=== PATIENT | female | born 1970 | race Caucasian/White ===

== ENCOUNTER 2024-07-06 20:48 | Emergency (ER) | payer SELFPAY ==
[2024-07-06 20:49] VITALS: BP 253/147; PULSE 118; RESP 16; TEMP 36.3; O2SAT 98; BMI 27.3
--- NOTE | 2024-07-06 21:24 | EKG12_ITS ---
Test Reason : DYSRHYTHMIA Blood Pressure : / mmHG Vent. Rate : 106 BPM Atrial Rate : 106 BPM P-R Int : 152 ms QRS Dur : 078 ms QT Int : 368 ms P-R-T Axes : 052 -11 056 degrees QTc Int : 488 ms Sinus tachycardia Possible Left atrial enlargement Nonspecific ST abnormality Abnormal ECG Confirmed by STACY YOUNG, ANGEL ([id number]), school photograph editor AMITA DICK ([id number]) on 07/08/2024 8:08:29 AM Referred By: Confirmed By:ANGEL KUMAR MD
[2024-07-06 21:30] LABS: Absolute Neutrophil Count 3.3 X10^3/uL (2.0-7.7); Basophil# 0.01 X10^3/uL; Basophil% 0.2 % (0-1); Eosinophils% 1.7 % (0-5); Hematocrit 41.7 % (37-47); Hemoglobin 14.4 g/dL (12.0-15.0); Lymphocyte % 35.7 % (19-41); Mean Corp Hgb Conc 34.5 g/dL (32-36); Mean Corpuscular Hgb 29.5 pg (27.0-32.0); Mean Corpuscular Volume 85.5 fL (81-99); Mean Platelet Vol. 10.5 fl (6.2-12.0); Monocyte# 0.34 X10^3/uL; Monocyte% 5.8 % (0-10); NRBC Flagged by Analyzer 0 % (0-5); Neutrophil # 3.31 X10^3/uL (2.7-7.7); Neutrophil % 56.3 % (47-70); Platelet Count 234 K/mm3 (150-450); RBC Distribution Width CV 12.9 % (11.6-14.6); RBC Distribution Width SD 39.9 fl (35.1-43.9); Red Blood Count 4.88 M/mm3 (4.2-5.4); White Blood Count 5.9 K/mm3 (4.4-11.0)
[2024-07-06] MEDS: Labetalol (Prefilled) 20 MG/4 ML 10 MG IV (21:42)
[2024-07-06 21:44] LABS: Anion Gap 7 (5-15); BUN 24 mg/dL (7-18); BUN/Creat Ratio 25.9 RATIO (10-20); Calcium,Total 9.7 mg/dL (8.5-10.1); Chloride 100 mmol/L (98-107); Creatinine, Serum 0.93 mg/dL (0.55-1.02); EST Glomerular Filtration Rate 67 mL/min (>60); Est Glom Filt Rate - Afr Amer 81 mL/min (>60); Estimated Creatinine Clearance 69.93 ml/min; Glucose 379 mg/dL (74-106); Potassium 4.1 mmol/L (3.5-5.1); Sodium Level 135 mmol/L (136-145)
[2024-07-06 21:49] VITALS: BP 207/82; PULSE 92; RESP 13; O2SAT 97
[2024-07-06 21:55] LABS: Bacteria 0 SEEN /hpf (None Seen); Mucous, Urine 0 SEEN /hpf (<or=2+)
[2024-07-06 21:56] LABS: Color, Urine Yellow (Yellow); Glucose, Dipstick 1000 mg/dl (Normal); Ketone-Dipstick Negative (Negative); Leukocyte Esterase-Dipstick Negative /ul (Negative); Nitrite-Dipstick Negative (Negative); Occult Blood-Urine Negative /ul (Negative); Protein-Dipstick Negative (Negative); Urine Bilirubin Dipstick Negative (Negative); Urine Clarity Clear (Clear); Urine Urobilinogen Normal (Normal)
[2024-07-06 22:00] VITALS: BP 178/93; PULSE 92; RESP 15; O2SAT 98
[2024-07-06 22:08] LABS: Red Blood Cells-Urine 0-5 SEEN /hpf (0-5); Squamous Epithelial Cells - UA 0-5 SEEN /hpf (5-10); White Blood Cells 0-5 SEEN /hpf (0-5)
--- NOTE | 2024-07-06 22:09 | EDS_ITS ---
HPI History of Present Illness Chief Complaint: Hypertension Detail of Chief Complaint: Blood pressure greater than 200 Informant: patient Onset/Context/Timing Onset: - (Unknown) Context: - (Unknown) Timing: - (Presumed continuous) Quality: Blood pressure reading yesterday of 169 systolic. Today blood pressure bren Location: Cardiovascular Current Severity: Moderate Maximum Severity: Moderate Worsened by: Nothing Relieved by: Nothing Associated Symptoms Associated Symptoms: Slight headache yesterday Narrative Narrative: Patient is a 54-year-old woman has not seen a physician in over 5 years. She is present on no medicines. She is on herbal supplements. She states that beet juice. She changed her diet to be more healthy. She is scheduled to see a doctor in September. She is uncertain of the name of that physician. She denies allergies. Prior similar symptoms: No Recent Illness/Hospitalization: No PFSH PFS Medical History (Updated 07/06/24 @ 22:[address] Moe Villarreal MD) Hypertension Medical History no medical history no medical history Home Medications ?Medication ?Instructions ?Recorded ?Last Taken ?Type lisinopril 10 1 tab PO DAILY #30 tabs 07/06/24 Unknown Rx mg-hydrochlorothiazide 12.5 mg tablet metformin 500 mg tablet,extended 500 mg PO DAILY #30 tabs 07/06/24 Unknown Rx release 24 hr Allergy/AdvReac Type Severity Reaction Status Date / Time No Known Allergies Allergy Verified 07/06/24 20:52 Surgical History H/O tubal ligation Social History (Updated 07/06/24 @ 22:[address] Moe Villarreal MD) household members: spouse Smoking Status: Never smoker ROS ROS ED Constitutional Constitutional ED: Denies chills, fever(s), subjective or sweats Eyes Eyes: Denies blurry vision, change in vision or diplopia ENT ENT ED: Reports other Details: Denies trouble with speech or swallowing. ; Denies ear pain, rhinorrhea or sore throat Cardiovascular Cardiovascular: Denies chest pain, orthopnea, palpitations or paroxysmal nocturnal dyspnea Respiratory/Chest Respiratory/Chest: Denies cough, dyspnea, dyspnea on exertion, orthopnea or paroxysmal nocturnal dyspnea Gastrointestinal Gastrointestinal: Denies abdominal pain, nausea or vomiting Musculoskeletal Musculoskeletal: Denies arthralgias, back pain or myalgias Neurologic Neurologic: Reports headache(s) and other Details: No problems with balance or coordination. Denies anesthesia or motor weakness. ; Denies paresthesias or weakness Hematologic/Lymphatic Hematologic/Lymphatic: Reports systems reviewed and no addt'l complaints, except as documented EXAM Physical Exam Const Vital Signs: 07/06/24 20:49 07/06/24 21:08 07/06/24 21:49 Temperature 97.4 F L Temperature Source Temporal Pulse Rate 118 H 92 Respiratory Rate 16 13 Respiratory Effort Normal Non-Labored Respiratory Pattern Normal Blood Pressure 253/147 H 207/82 H Blood Pressure Mean 182 123 Pulse Ox 98 97 Oxygen Delivery Method Room Air Room Air 07/06/24 22:00 Temperature Temperature Source Pulse Rate 92 Respiratory Rate 15 Respiratory Effort Respiratory Pattern Blood Pressure 178/93 H Blood Pressure Mean 121 Pulse Ox 98 Oxygen Delivery Method Room Air Positive well nourished and well developed Constitutional Narrative: Blood pressure readings noted. General Appearance ED: well developed and NAD; Negative for pallor HEENT Reports moist mucous membranes HEENT Narrative: Head is atraumatic normocephalic. Ears normal. TMs normal. Posterior pharynx out erythema exudate. Uvula midline. No deviation tongue with protrusion. Eyes PERRL and EOMs intact bilaterally Eyes Narrative: There is no nystagmus. Funduscopic exam reveals no papilledema. There may be AV nicking. There is no copper wiring or exudate noted. Neck no lymphadenopathy, supple and no JVD Neck Narrative: There are no carotid bruits. Trachea is midline. Resp normal respiratory effort and clear to auscultation bilaterally Cardio regular rhythm, S1 normal heart sound, S2 normal heart sound and no murmurs Rate: tachycardic GI normal to inspection, nondistended, normoactive bowel sounds, non-tender and non-distended Extremity normal to inspection General Extremety ED: Negative for edema or tenderness General Extremity: Negative for edema Neuro oriented x3, CN's II-XII intact bilaterally and no sensory deficits noted Neuro Narrative: There is no dysmetria. Deep tendon reflexes are 1+ at the bicep, brachialis, tricep, patella and ankle. There is no clonus. There is no Babinski sign noted. Sensorium / Orientation: alert Motor Exam: strength 5/5 throughout Psych mental status grossly normal Skin no rashes or lesions noted, no wounds and skin turgor normal General Skin Exam: elasticity normal; Negative for jaundice or pallor MDM MDM MDM Narrative Medical decision making narrative: Patient with markedly elevated blood pressure. She has a nonfocal neurologic exam and has no neurologic symptoms therefore CT of the head was not obtained. Will obtain blood work to assess for endorgan dysfunction. This included EKG looking for evidence of LVH. Basic metabolic panel to assess BUN and creatinine, CBC to assess H&H. Lab Data Attestation: I reviewed the patient's lab results. Lab results narrative: CBC is normal. Basic metabolic panel is remarkable for elevated blood sugar, 379. The CO2 and anion gap are normal. BUN is elevated 24. Creatinine is normal. Urine is positive for glucose otherwise negative. There is no evidence of proteinuria or hematuria. Labs: Laboratory Results - last 24 hr 07/06/24 07/06/24 21:06 21:42 WBC 5.9 RBC 4.88 Hgb 14.4 Hct 41.7 MCV 85.5 MCH 29.5 MCHC 34.5 RDW Std Deviation 39.9 RDW Coeff of Debbie 12.9 Plt Count 234 MPV 10.5 Immature Gran % (Auto) 0.300 Neut % (Auto) 56.3 Lymph % (Auto) 35.7 [place] % (Auto) 5.8 Eos % (Auto) 1.7 Baso % (Auto) 0.2 Absolute Neuts (auto) 3.3 Absolute Lymphs (auto) 2.10 Nucleated RBC % 0 Sodium 135 L Potassium 4.1 Chloride 100 Carbon Dioxide 28.0 Anion Gap 7 BUN 24 H Creatinine 0.93 Estim Creat Clear Calc 69.93 Est GFR (MDRD) Af Amer 81 Est GFR (MDRD) Non-Af 67 BUN/Creatinine Ratio 25.9 H Glucose 379 H Calcium 9.7 Urine Color Yellow Urine Clarity Clear Urine pH 8.0 Ur Specific [place] 1.010 Urine Protein Negative Urine Glucose (UA) 1000 H Urine Ketones Negative Urine Occult Blood Negative Urine Nitrite Negative Urine Bilirubin Negative Urine Urobilinogen Normal Ur Leukocyte Esterase Negative Urine RBC 0-5 SEEN Urine WBC 0-5 SEEN Ur Squamous Epith Cells 0-5 SEEN Urine Bacteria 0 SEEN Urine Mucus 0 SEEN EKG Initial EKG: Attestation: I personally reviewed and interpreted this EKG as follows: Interpretation: Sinus Rhythm (Rate is 94. There is possible left atrial enlargement. There is no evidence of LVH. There are some nonspecific changes noted. [place] interval 252 ms. QS duration 70 ms. QT durations under 68 ms. [place] is normal.) Treatment and Re-Evaluation :: Since patient's blood pressure is elevated and she is tachycardic 10 mg of labetalol was ordered IV push. Patient was reassessed at 2215. Blood pressure is 178/82. Heart rate is in the upper 80s lower 90s. Patient was informed of results. Discharge Plan Triage Chief Complaint: Hypertension ED Provider: Moe Villarreal Dx/Rx/DC Orders Clinical Impression: Hypertensive urgency, New onset type 2 diabetes mellitus, Sinus tachycardia seen on manager monitoring Instructions: ED High Blood Pressure Hypertension, ED Diet: Diabetes, ED Hyperglycemia New Poss Diabetes Prescriptions: New lisinopril-hydrochlorothiazide 10-12.5 mg tablet 1 tab PO DAILY Qty: 30 0RF metformin 500 mg tablet extended release 24 hr 500 mg PO DAILY Qty: 30 0RF Primary Care Provider: Care Physician,No Primary Referrals: Corwin Braxton MD [Med Staff - Department Manager] - 1 Week Care Physician,No Primary [Primary Care Provider] - Activity Restrictions/Additional Instructions: Call Dr. Corwin Braxton's office Sunday. They will get you in to be seen and go over diabetic education and monitor your blood pressure. He is in agreement with the medications I started you on. Print Language: Citizen Of [place] Disposition Disposition: Home, Self Care
[2024-07-06 23:01] VITALS: BP 166/74; PULSE 92; RESP 17; TEMP 36.7; O2SAT 97
--- NOTE | 2024-07-06 23:01 | ED.RN ---
medications sent to [facility] [place] by per patient request
== END 2024-07-06 23:02 | disposition home or self-care (01) ==
PROVIDERS: Emergency Provider Emergency Medicine; Visit Provider Emergency Medicine
DX: I16.0 Hypertensive urgency (principal); E11.9 Type 2 diabetes mellitus without complications; R00.0 Tachycardia, unspecified; I10 Essential (primary) hypertension; Z79.899 Other long term (current) drug therapy; Z79.84 Long term (current) use of oral hypoglycemic drugs; Z98.51 Tubal ligation status
CPT/HCPCS: 80048; 81001; 85025; 93005; 96374; 99284; A4216

== ENCOUNTER → 2024-07-24 | Outpatient (CLI) | payer SELFPAY ==
[2024-07-24 11:04] LABS: Mucous, Urine 0 SEEN /hpf (<or=2+); Red Blood Cells-Urine 0 SEEN /hpf (0-5); White Blood Cells 0 SEEN /hpf (0-5)
[2024-07-24 12:27] LABS: Color, Urine Yellow (Yellow); Glucose, Dipstick 1000 mg/dl (Normal); Ketone-Dipstick Negative (Negative); Leukocyte Esterase-Dipstick Negative /ul (Negative); Nitrite-Dipstick Negative (Negative); Occult Blood-Urine Negative /ul (Negative); Protein-Dipstick Negative (Negative); Specific Gravity, Urine 1.015 (1.002-1.030); Urine Bilirubin Dipstick Negative (Negative); Urine Clarity Clear (Clear); Urine Urobilinogen Normal (Normal)
[2024-07-24 12:49] LABS: Bacteria 1+ /hpf (None Seen); Squamous Epithelial Cells - UA 0-5 SEEN /hpf (5-10)
[2024-07-24 13:12] LABS: Microalbumin,Random Urine 13.4 mg/L (NO RANGE EST.); Microalbumin:Creatinine Ratio 24.1 mg/g CRE (<30 mg/g CRE)
[2024-07-24 15:10] LABS: Absolute Lymphocyte Count 2.03 X10^3/uL (0.83-4.51); Absolute Neutrophil Count 5.1 X10^3/uL (2.0-7.7); Basophil# 0.03 X10^3/uL; Basophil% 0.4 % (0-1); Eosinophil# 0.06 X10^3/uL; Eosinophils% 0.8 % (0-5); Hematocrit 41.1 % (37-47); Hemoglobin 13.8 g/dL (12.0-15.0); Lymphocyte # 2.03 X10^3/ul (0.83-4.51); Lymphocyte % 26.5 % (19-41); Mean Corp Hgb Conc 33.6 g/dL (32-36); Mean Corpuscular Hgb 29.9 pg (27.0-32.0); Mean Corpuscular Volume 89.2 fL (81-99); Mean Platelet Vol. 11.2 fl (6.2-12.0); Monocyte# 0.42 X10^3/uL; Monocyte% 5.5 % (0-10); NRBC Flagged by Analyzer 0 % (0-5); Neutrophil % 66.4 % (47-70); Platelet Count 261 K/mm3 (150-450); RBC Distribution Width SD 42.1 fl (35.1-43.9); Red Blood Count 4.61 M/mm3 (4.2-5.4); White Blood Count 7.7 K/mm3 (4.4-11.0)
[2024-07-24 15:26] LABS: Hemoglobin A1c 10.6 % (3.8-5.6)
[2024-07-24 15:44] LABS: ALB/GLOB Ratio 0.9 RATIO (0.9-2.4); AST(SGOT) 14 U/L (15-37); Alanine Aminotransfer ALT/SGPT 26 U/L (13-56); Albumin, Serum 3.6 g/dL (3.2-5.0); Alkaline Phosphatase 96 U/L (45-117); Anion Gap 6 (5-15); BUN 20 mg/dL (7-18); BUN/Creat Ratio 26.1 RATIO (10-20); Calcium,Total 9.7 mg/dL (8.5-10.1); Chloride 102 mmol/L (98-107); Cholesterol 181 mg/dL (200); Creatinine, Serum 0.76 mg/dL (0.55-1.02); EST Glomerular Filtration Rate 84 mL/min (>60); Est Glom Filt Rate - Afr Amer 101 mL/min (>60); Globulin 4.1 g/dL (2.2-4.2); Glucose 198 mg/dL (74-106); High Density Lipoprotein 41 mg/dL; Protein, Total 7.7 g/dL (6.4-8.2); Sodium Level 134 mmol/L (136-145); Triglycerides 173 mg/dL; Very Low Density Lipoprotein 35 mg/dL (5-40)
== END | disposition home or self-care (01) ==
PROVIDERS: PCP Family Medicine; Visit Provider Family Medicine
DX: E11.8 Type 2 diabetes mellitus with unspecified complications (principal)
CPT/HCPCS: 36415; 80053; 80061; 81001; 82043; 82570; 83036; 84443; 85025